=== PATIENT | male | born 1945 | race Two or more races ===

== ENCOUNTER 2017-01-29 04:30 | Emergency (ER) | payer OTHER, MEDICAID ==
[~2017-01-29] VITALS: Ht 170.2 cm; Wt 80.7 kg
[2017-01-29 04:39] VITALS: Ht 170.2 cm; Wt 80.7 kg
[2017-01-29 08:05] VITALS: BP 147/73
== END 2017-01-29 08:05 | disposition home or self-care (01) ==
LOC: ED 04:30
DX: M94.0 Chondrocostal junction syndrome [Tietze] (principal)
CPT/HCPCS: J1885; J2270